=== PATIENT | female | born 1980 | race Caucasian/White ===

== ENCOUNTER 2021-06-30 05:27 | Day surgery (SDC) | payer SELFPAY ==
--- NOTE | 2021-06-30 | COLBX_PTH ---
PATIENT: LORRI PARISH LOC: [facility] U#:[id number] AGE/SX: 40/F ROOM: RE06/30/[address]: Dr. Guicho Campbell DO : 1980 BED: DIS: 06/30/2021 SPEC #: [id number] RECD: 06/30/21 13:11 STATUS: GERTRUDIS GLORIA #: [id number] TYRELL: 06/30/21 00:[address]: Guicho Campbell DEPT: SURGICAL PATHOLOGY RECD BY: Víctor Dahl ENTERED: 07/01/21 08:01 SP TYPE: COLON BX OTHR DR: Dr. Karan Peñaloza DO Tissues: A - Duodenum, NOS B - Gastric mucous membrane C - Esophageal mucous membrane D - Ascending colon E - Sigmoid colon biopsy Procedures: Special Stain Group II Surgery Specimen Level IV Alcian Blue/PAS (control) HEADER OPERATION: Colonoscopy with tattoo and biopsy, EGD with biopsy ([facility]) PRE-OP DIAGNOSIS: Rectal Hemorrhage TISSUE SUBMITTED: A ? Duodenum biopsy, B - Gastric body biopsy, C - Distal Esophagus biopsy, D - Ascending Colon polyp, E - Rectosigmoid Junction Mass biopsy MICROSCOPIC DIAGNOSIS A. Duodenum, biopsy: No pathologic change. B. Gastric body, biopsy: Chronic gastritis. See comment. C. Distal esophagus, biopsy: Gastroesophageal junctional mucosa with chronic inflammation. No evidence of goblet cell metaplasia. Focal changes of reflux. See comment. D. Ascending colon polyp, biopsy: Fragments of hyperplastic polyp. E. 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 See comment. AM:carla 07/02/2021 COMMENT B. The results of immunohistochemistry for Helicobacter pylori will be reported separately ([id number]). C. Alcian blue/PAS stain with matched control supports the above diagnosis. E. Immunohistochemistry ([id number]) supports the above diagnosis. Case has been reviewed in consultation with Dr. Portillo who concurs with the above diagnosis. IDC:SJ MICROSCOPIC DESCRIPTION Slides are reviewed. GROSS DESCRIPTION A - Received in fixative is one container labeled with the patient's name and designated duodenum biopsy. The specimen consists of multiple irregular fragments of light borwn soft tissue that in aggregate measure 1 x 0.2 x 0.1 cm. The specimen is totally submitted in one cassette. B - Received in fixative is one container labeled with the patient's name and designated gastric body biopsy. The specimen consists of multiple irregular fragments of light brown soft tissue that in aggregate measure 0.5 x 0.2 x 0.1 cm. The specimen is totally submitted in one cassette. C - Received in fixative is one container labeled with the patient's name and designated distal esophagus biopsy. The specimen consists of multiple irregular fragments of light brown soft tissue that in aggregate measure 0.5 x 0.2 x 0.1 cm. The specimen is totally submitted in one cassette. D - Received in fixative is one container labeled with the patient's name and designated ascending colon polyp. The specimen consists of multiple irregular fragments of light brown soft tissue that in aggregate measure 1 x 0.5 x 0.1 cm. The specimen is totally submitted in one cassette. E - Received in fixative is one container labeled with the patient's name and designated rectosigmoid junction mass biopsy. The specimen consists of multiple irregular fragments of light brown soft tissue that in aggregate measure 1.5 x 0.5 x 0.1 cm. The specimen is totally submitted in one cassette. / SJ:rg 07/01/2021 TC:0 CPT: 55479 x5, 69433
[2021-06-30 06:02] LABS: Internal QC Validated? YES +Cl - CLEAR BKGD; Pregnancy, Urine Negative Negative
[2021-06-30] MEDS: Lactated Ringers 1,000 ML 15 ML IV (06:03)
[2021-06-30 06:04] VITALS: BP 123/82; PULSE 79; RESP 16; TEMP 36.9; O2SAT 100; BMI 21.0
--- NOTE | 2021-06-30 06:22 | HP.PCM_ITS ---
History and Physical Date of Admission: 06/30/21 LORRI PARISH, is a 40 F who presents to the office today for urgent loose stools sometimes containing blood, sometimes loose stools following PO intake. She will get some abdominal cramping or ?gas discomfort?. No pattern regarding frequency or triggers identified. Has not found anything that alleviates or aggravates factors. Referred by PCP who saw her 03.19.21 for rectal bleeding which started with an increase in symptom five days before presentation to PCP. Denies change in bowel habits, but does report mucous in her stool. Increased fatigue. No abdominal pain, nausea, emesis, diet change. CBC performed 03.19.21 with hemoglobin 13.9, RBC 4.87 and remaining values in normal range. ROS Const Constitutional: No anorexia, fatigue, fever(s), weight change or sleep problems Eyes Eyes: No change in vision ENT ENT: No abnormal hearing, difficulty swallowing, mouth lesions, tongue swelling or throat swelling Resp Respiratory: No cough or shortness of breath Cardio Cardiology: No chest pain at rest, chest pain with exertion, shortness of breath or dyspnea on exertion Gastro GI: No difficulty swallowing Genitourinary-Female: No difficulty urinating or burning urination Musc Musculoskeletal: No joint pain, joint swelling, muscle weakness or decreased muscle mass Skin Skin: No hair loss in leg, yellowing of the eye, itchy eyes, rash, skin ulcer or skin swelling Neuro Neurology: No abnormal hearing, abnormal movements, confusion, unsteady gait/balance or memory loss Psych Psychiatric: No anxiety, No confusion and No memory loss Endo Endocrine: No fatigue or weight change Aller/Imm Allergy/Immunologic: No itchy eyes, throat swelling or tongue swelling Viraj/Lymp Hematologic/Lymphatic: No easy bleeding, easy bruising or enlarged lymph nodes Exam Const General: cooperative and comfortable Nutritional Appearance: average body habitus and well nourished [facility] Head: normal to inspection Ears: hearing grossly normal bilaterally Nose: external nose normal Face and sinus: normal facial exam Mouth: oral mucosae normal Throat: posterior oropharynx normal Eyes General: appearance normal, both eyes and all related structures Neck Neck: normal visual inspection Chest Chest palpation & inspection: normal inspection of the chest and normal palpation of entire chest wall Resp Effort & Inspection: normal respiratory effort Auscultation: Bilateral: Clear to Auscultation Cardio Palpation: normal PMI Rate: regular rate Rhythm: regular rhythm GI Inspection: normal to inspection Auscultation: normal bowel sounds Percussion: normal to percussion Palpation: no hepatosplenomegaly Skin General: no rashes or lesions noted Neuro General: patient alert Extrem General: normal to inspection Psych Affect: normal affect Assessment and Plan Assessment and Plan (1) Rectal hemorrhage: Plan - Dr. Lindo Friend, DO: Endoscopy to evaluate GI tract find the source of GI bleeding and abdominal cramping. She was explained alternatives, risk, benefits including not withstanding bleeding, infection, sepsis, perforation, need emergent . She will have an ASA 1. I have re-examined the patient. There are no clinical changes since date of exam.
--- NOTE | 2021-06-30 06:30 | IMM_PTH ---
PATIENT: LORRI PARISH LOC: [facility] U#:[id number] AGE/SX: 40/F ROOM: RE06/30/[address]: Dr. Guicho Campbell DO : 1980 BED: DIS: 06/30/2021 SPEC #: [id number] RECD: 06/30/21 13:11 STATUS: GERTRUDIS GLORIA #: [id number] TYRELL: 06/30/21 06:[address]: Guicho Campbell DEPT: IMMUNOHISTOCHEMISTRY RECD BY: Darleen George ENTERED: 07/01/21 08:22 SP TYPE: IMMUNO OTHR DR: Dr. Karan Peñaloza DO Tissues: B - Gastric mucous membrane E - Rectosigmoid junction Procedures: H Pylori (initial) MSH2 (add) MLH-1 (add) MSH6 (add) Anti-PMS2 (add) JACQUES-2 (add) HER2 NATALIA (add) P53 (add) KI-67 (initial) PHYSICIAN & [address] [address] SPECIMEN INFORMATION: Tissue Source: B - Gastric Body Biopsy, E ? Rectosigmoid junction mass biopsy Clinical Info: Abdominal Pain Specimen Number: [id number] B & E CPT code: 23007 x2, 97321 x7 METHODOLOGY: Deparaffinized sections of prefer/formalin-fixed tissue or PAP/DQ stained slides are incubated with monoclonal/polyclonal antibodies/oligonucleotide probes. Localization is made via biotin free immunoperoxidase method. Appropriate controls are performed and reacted as expected. Results on target cell population are indicated in the following table: RESULTS: ANTIBODY / CLONE RESULT Block B H Pylori (polyclonal) negative Block E Her-2neu (CB11) negative JACQUES-2 (SP21) positive MLH-1 (M1) positive MSH2 (25D12) positive MSH6 (44) positive PMS2 (NAP3185) positive Ki-67 (30-9) positive, >90% P53 (DO-7) positive, >95% These tests were developed and their performance characteristics determined by [facility]. They may not have been cleared or approved by the U.S. Food and Drug Administration. The FDA has determined that such clearance or approval is not necessary. The above immunohistochemical/dualISH markers are ordered and reviewed by the Pathologist. INTERPRETATION: B. Gastric body, biopsy: Negative for Helicobacter pylori organisms. E. Rectosigmoid junction mass, biopsy: Invasive adenocarcinoma. Result of Microsatellite Instability Study: Negative (no loss of mismatch protein; no microsatellite instability detected). AM:carla 07/05/2021
[2021-06-30 07:20] VITALS: BP 103/65; BP 123/82; PULSE 67; RESP 16; TEMP 36.4; O2SAT 100
--- NOTE | 2021-06-30 07:23 | OP.CCLET_ITS ---
11/26/2021 Karan Peñaloza Re : Upper GI endoscopy procedure for Mariana Hudson Dear Anabela This procedure was performed on Wednesday, June 30, 2021. My impressions and recommendations are as follows: Impressions : - LA Grade A reflux esophagitis. Biopsied. - Erythematous mucosa in the gastric body. Biopsied. - Erythematous duodenopathy. Biopsied. Recommendations : - Discharge patient to home. - Resume previous diet. - Continue present medications. - Await pathology results. My findings are described in the full procedure note, which is enclosed. If I can be of further assistance, please feel free to contact me at . Sincerely, Guicho Campbell DO 06/30/2021 7:22:57 AM This report has been signed electronically.
--- NOTE | 2021-06-30 07:23 | OP.EGD_ITS ---
Patient Name: Mariana Hudson Procedure Date: 06/30/2021 6:24 AM Date of : 1980 Age: 40 Procedure: Upper GI endoscopy Indications: Generalized abdominal pain Providers: Guicho Campbell DO Medicines: Monitored Anesthesia Care Patient Profile: This is a 40 year old female. Refer to note in patient chart for documentation of history and physical. Patient has symptoms of acute abdominal cramping. Complications: No immediate complications. Procedure: Pre-Anesthesia Assessment: - Prior to the procedure, a History and Physical was performed, and patient medications and allergies were reviewed. The patient is competent. The risks and benefits of the procedure and the sedation options and risks were discussed with the patient. All questions were answered and informed consent was obtained. Patient identification and proposed procedure were verified by the physician in the pre-procedure area. Mental Status Examination: alert and oriented. Airway Examination: normal oropharyngeal airway and neck mobility. Respiratory Examination: clear to auscultation. CV Examination: normal. Prophylactic Antibiotics: The patient does not require prophylactic antibiotics. Prior Anticoagulants: The patient has taken no previous anticoagulant or antiplatelet agents. ASA Grade Assessment: II - A patient with mild systemic disease. After reviewing the risks and benefits, the patient was deemed in satisfactory condition to undergo the procedure. The anesthesia plan was to use moderate sedation / analgesia (conscious sedation). Immediately prior to administration of medications, the patient was re-assessed for adequacy to receive sedatives. The heart rate, respiratory rate, oxygen saturations, blood pressure, adequacy of pulmonary ventilation, and response to care were monitored throughout the procedure. The physical status of the patient was re-assessed after the procedure. After obtaining informed consent, the endoscope was passed under direct vision. Throughout the procedure, the patient's blood pressure, pulse, and oxygen saturations were monitored continuously. The Colonoscope was introduced through the mouth, and advanced to the third part of duodenum. The upper GI endoscopy was accomplished without difficulty. The patient tolerated the procedure well. Moderate Sedation: Moderate (conscious) sedation was administered by the endoscopy nurse and supervised by the endoscopist. The patient's oxygen saturation, heart rate, blood pressure and response to care were monitored. Total physician intraservice time was 15 minutes. Scope In: 6:39:07 AM Scope Out: 6:46:20 AM Total Procedure Duration Time 0 hours 7 minutes 13 seconds Findings: LA Grade A (one or more mucosal breaks less than 5 mm, not extending between tops of 2 mucosal folds) esophagitis with no bleeding was found 34 to 35 cm from the incisors. Biopsies were taken with a cold forceps for histology. Verification of patient identification for the specimen was done. Estimated blood loss was minimal. Patchy mildly erythematous mucosa without bleeding was found in the gastric body. Biopsies were taken with a cold forceps for histology. Estimated blood loss was minimal. Patchy mildly erythematous mucosa without active bleeding and with no stigmata of bleeding was found in the first portion of the duodenum. Biopsies were taken with a cold forceps for histology. Estimated blood loss: none. Impression: - LA Grade A reflux esophagitis. Biopsied. - Erythematous mucosa in the gastric body. Biopsied. - Erythematous duodenopathy. Biopsied. Recommendation: - Discharge patient to home. - Resume previous diet. - Continue present medications. - Await pathology results. Procedure Code(s): --- Professional --- 87683, Esophagogastroduodenoscopy, flexible, transoral; with biopsy, single or multiple G0500, Moderate sedation services provided by the same physician or other qualified health nurse behavioral health care performing a gastrointestinal endoscopic service that sedation supports, requiring the presence of an independent trained observer to assist in the monitoring of the patient's level of consciousness and physiological status; initial 15 minutes of intra-service time; patient age 5 years or older (additional time may be reported with 48433, as appropriate) CPT copyright 2017 [employer]. All rights reserved. The codes documented in this report are preliminary and upon change management coordinator review may be revised to meet current compliance requirements. Guicho Campbell DO 06/30/2021 7:22:57 AM This report has been signed electronically. Number of Addenda: 1 Note Initiated On: 06/30/2021 6:24 AM Addendum Number: 1 Addendum Date: 11/26/2021 6:33:29 AM MAC was used as sedation for this procedure. Guicho Campbell DO 11/26/2021 6:33:33 AM This report has been signed electronically.
[2021-06-30 07:25] VITALS: BP 123/82; BP 96/58; PULSE 62; RESP 16; O2SAT 100
--- NOTE | 2021-06-30 07:28 | OP.COLON_ITS ---
Patient Name: Mariana Hudson Procedure Date: 06/30/2021 6:46 AM Date of : 1980 Age: 40 Procedure: Colonoscopy Indications: Screening for colorectal malignant neoplasm Providers: Guicho Campbell DO Medicines: Monitored Anesthesia Care Patient Profile: This is a 40 year old female. Refer to note in patient chart for documentation of history and physical. Patient has symptoms of acute abdominal cramping. Last Colonoscopy: none. The patient's first colonoscopy is today. Complications: No immediate complications. Procedure: Pre-Anesthesia Assessment: - Prior to the procedure, a History and Physical was performed, and patient medications and allergies were reviewed. The patient is competent. The risks and benefits of the procedure and the sedation options and risks were discussed with the patient. All questions were answered and informed consent was obtained. Patient identification and proposed procedure were verified by the physician in the pre-procedure area. Mental Status Examination: alert and oriented. Airway Examination: normal oropharyngeal airway and neck mobility. Respiratory Examination: clear to auscultation. CV Examination: normal. Prophylactic Antibiotics: The patient does not require prophylactic antibiotics. Prior Anticoagulants: The patient has taken no previous anticoagulant or antiplatelet agents. ASA Grade Assessment: II - A patient with mild systemic disease. After reviewing the risks and benefits, the patient was deemed in satisfactory condition to undergo the procedure. The anesthesia plan was to use moderate sedation / analgesia (conscious sedation). Immediately prior to administration of medications, the patient was re-assessed for adequacy to receive sedatives. The heart rate, respiratory rate, oxygen saturations, blood pressure, adequacy of pulmonary ventilation, and response to care were monitored throughout the procedure. The physical status of the patient was re-assessed after the procedure. After I obtained informed consent, the scope was passed under direct vision. Throughout the procedure, the patient's blood pressure, pulse, and oxygen saturations were monitored continuously. The Duodenoscope was introduced through the anus and advanced to the terminal ileum. The colonoscopy was performed without difficulty. The patient tolerated the procedure well. The quality of the bowel preparation was good. Moderate Sedation: Moderate (conscious) sedation was administered by the endoscopy nurse and supervised by the endoscopist. The patient's oxygen saturation, heart rate, blood pressure and response to care were monitored. Total physician intraservice time was 15 minutes. Scope In: 6:48:02 AM Scope Withdrawal Time 0 hours 21 minutes 48 seconds Scope Out: 7:15:04 AM Total Procedure Duration Time 0 hours 27 minutes 2 seconds Findings: The perianal and digital rectal examinations were normal. An ulcerated partially obstructing medium-sized mass was found in the recto-sigmoid colon. The mass was circumferential. The mass measured three cm in length. In addition, its diameter measured five mm. Oozing was present. This was biopsied with a cold forceps for histology. Verification of patient identification for the specimen was done. Area was successfully injected with 5 mL Kellie ink for tattooing. Estimated blood loss was minimal. A 5 mm polyp was found in the ascending colon. The polyp was sessile. The polyp was removed with a cold snare. Resection and retrieval were complete. Verification of patient identification for the specimen was done. Estimated blood loss was minimal. The exam was otherwise without abnormality on direct and retroflexion views. Impression: - Malignant partially obstructing tumor in the recto-sigmoid colon. Biopsied. Injected. - One 5 mm polyp in the ascending colon, removed with a cold snare. Resected and retrieved. - The examination was otherwise normal on direct and retroflexion views. Recommendation: - Discharge patient to home. - Resume previous diet. - Continue present medications. - Await pathology results. - Refer to an oncologist in 1 day. - Repeat colonoscopy is recommended for surveillance. The colonoscopy date will be determined after pathology results from today's exam become available for review. Procedure Code(s): --- Professional --- 45149, Colonoscopy, flexible; with removal of tumor(s), polyp(s), or other lesion(s) by snare technique 63541, Colonoscopy, flexible; with directed submucosal injection(s), any substance 09377, 59, Colonoscopy, flexible; with biopsy, single or multiple G0500, Moderate sedation services provided by the same physician or other qualified health memory care director performing a gastrointestinal endoscopic service that sedation supports, requiring the presence of an independent trained observer to assist in the monitoring of the patient's level of consciousness and physiological status; initial 15 minutes of intra-service time; patient age 5 years or older (additional time may be reported with 27745, as appropriate) CPT copyright 2017 [employer]. All rights reserved. The codes documented in this report are preliminary and upon tool keeper review may be revised to meet current compliance requirements. Guicho Campbell DO 06/30/2021 7:28:12 AM This report has been signed electronically. Number of Addenda: 1 Note Initiated On: 06/30/2021 6:46 AM Addendum Number: 1 Addendum Date: 11/26/2021 6:33:59 AM MAC was used as sedation for this procedure. Guicho Campbell DO 11/26/2021 6:34:04 AM This report has been signed electronically.
--- NOTE | 2021-06-30 07:28 | OP.CCLET_ITS ---
11/26/2021 Karan Peñaloza Re : Colonoscopy procedure for Mariana Hudson Dear Anabela This procedure was performed on Wednesday, June 30, 2021. My impressions and recommendations are as follows: Impressions : - Malignant partially obstructing tumor in the recto-sigmoid colon. Biopsied. Injected. - One 5 mm polyp in the ascending colon, removed with a cold snare. Resected and retrieved. - The examination was otherwise normal on direct and retroflexion views. Recommendations : - Discharge patient to home. - Resume previous diet. - Continue present medications. - Await pathology results. - Refer to an oncologist in 1 day. - Repeat colonoscopy is recommended for surveillance. The colonoscopy date will be determined after pathology results from today's exam become available for review. My findings are described in the full procedure note, which is enclosed. If I can be of further assistance, please feel free to contact me at . Sincerely, Guicho Campbell, 06/30/2021 7:28:12 AM This report has been signed electronically.
[2021-06-30 07:30] VITALS: BP 123/82; BP 98/65; PULSE 65; RESP 16; O2SAT 100
[2021-06-30 07:35] VITALS: BP 102/66; BP 123/82; PULSE 61; RESP 16; TEMP 36.3; O2SAT 100
[2021-06-30 07:57] VITALS: BP 123/82
== END 2021-06-30 08:19 | disposition home or self-care (01) ==
LOC: EN 05:35 → AC 05:37
PROVIDERS: Anesthesiology; PCP Family Medicine; Referring Provider Family Medicine; Visit Provider Internal Medicine Gastroenterology
PROC: 0DJD8ZZ Inspection of Lower Intestinal Tract, Via Natural or Artificial Opening Endoscopic (ICD-10-PCS; CPT 45378; principal; 2021-06-30 06:25)
DX: Z12.11 Encounter for screening for malignant neoplasm of colon (principal); C19 Malignant neoplasm of rectosigmoid junction; K63.5 Polyp of colon; K62.5 Hemorrhage of anus and rectum; K21.00 Gastro-esophageal reflux disease with esophagitis, without bleeding; K29.50 Unspecified chronic gastritis without bleeding; R10.84 Generalized abdominal pain; M19.90 Unspecified osteoarthritis, unspecified site; Z20.822 Contact with and (suspected) exposure to COVID-19
CPT/HCPCS: 45380; 45385; 45381; 43239; 81025; 87426; 88305; 88313; 88341; 88342; J7120; A4648; J2405